=== PATIENT | female | born 1975 | race Two or more races ===

== ENCOUNTER 2019-10-28 20:52 | Emergency (ER) | payer SELFPAY ==
[~2019-10-28] VITALS: Ht 165.1 cm; Wt 70.0 kg
[2019-10-28] MEDS ORDERED: MORPHINE SULFATE 2 MG/ML VIAL. ONE (21:26)
[2019-10-28] MEDS ORDERED: ASPIRIN 325 MG TABLET ONE (21:26)
[2019-10-28] MEDS ORDERED: MORPHINE SULFATE 2 MG/ML VIAL. IV/SQ PRN (21:30)
[2019-10-28 21:32] LABS: BASO # 0.1 x10^3/uL (0.0-0.2); BASO % 1 % (0-3); EOS # 0.1 x10^3/uL (0.0-0.7); EOS % 1 % (0-3); HEMATOCRIT 28.8 % (36.0-47.0); HEMOGLOBIN 9.1 g/dL (12.0-15.5); LYMPH # 1.5 x10^3/uL (1.0-4.8); LYMPH % 12 % (24-48); MEAN CORPUSCULAR HEMOGLOBIN 22 pg (25-35); MEAN CORPUSCULAR HGB CONC 31 g/dL (31-37); MEAN CORPUSCULAR VOLUME 71 fL (79-100); MONO # 0.9 x10^3/uL (0.0-1.1); MONO % 7 % (0-9); NEUT # 10.1 x10^3/uL (1.8-7.7); NEUT % 80 % (31-73); PLATELET COUNT 400 x10^3/uL (140-400); RED BLOOD COUNT 4.08 x10^6/uL (3.50-5.40); RED CELL DISTRIBUTION WIDTH 18.4 % (11.5-14.5); WHITE BLOOD COUNT 12.7 x10^3/uL (4.0-11.0)
--- NOTE | 2019-10-28 21:32 | EKG ---
[facility] [address] [place] [address] Test Date: 2019-10-28 Test Time: 21:00:13 Pat Name: EMMANUELLE SPANGLER Department: Room: Gender: F Screen Vent Binder: : [id number] Requested By: YAEL PORTER Order Number: [id number] Reading MD: Measurements Intervals [place] Rate: 103 P: 42 NE: 112 QRS: 14 QRSD: 74 T: -4 QT: 340 QTc: 447 Interpretive Statements SINUS TACHYCARDIA NO SPECIFIC ECG ABNORMALITIES RI6.01 No previous ECG available for comparison
[2019-10-28 21:37] LABS: PROTHROMBIN TIME PATIENT 13.5 SEC (11.7-14.0)
[2019-10-28 21:39] LABS: CALCIUM 8.9 mg/dL (8.5-10.1); CREATININE 0.8 mg/dL (0.6-1.0); GFR 78.3; POTASSIUM 3.6 mmol/L (3.5-5.1)
[2019-10-28 21:40] LABS: D-DIMER 0.49 ug/mlFEU (0.00-0.50)
[2019-10-28 21:44] LABS: ALBUMIN 3.8 g/dL (3.4-5.0); ALBUMIN/GLOBULIN RATIO 0.9 (1.0-1.7); MAGNESIUM 1.9 mg/dL (1.8-2.4); TOTAL BILIRUBIN 0.3 mg/dL (0.2-1.0); TOTAL PROTEIN 7.9 g/dL (6.4-8.2)
[2019-10-28 21:50] LABS: ANISOCYTOSIS SLIGHT; HYPOCHROMIA MOD; MICROCYTOSIS MARKED; PLT ESTIMATE ADEQUATE (ADEQUATE); POLYCHROMASIA SLIGHT
[2019-10-28 21:56] LABS: CREATINE KINASE 55 U/L (26-192)
[2019-10-28] MEDS ORDERED: IV NORMAL SALINE 1000ML BAG 1,000 ML IV ONE (22:00)
[2019-10-28] MEDS ORDERED: ASPIRIN 325 MG TABLET PO ONE (22:00)
--- NOTE | 2019-10-28 22:04 | RAD ---
Study: CR PORTABLE CHEST 1V Indication: Chest pain. Comparison: None. Findings: Low lung volumes with bronchovascular crowding and accentuation of cardiomediastinal silhouette size. Mild basilar volume loss. No confluent infiltrate, layering effusion or pneumothorax. Impression: Apparent prominence of the cardiomediastinal silhouette and increased lung markings is likely in part related to low lung volumes and AP technique. Findings at the lung bases typical of volume loss. No acute abnormality is identified. Electronically signed by: DENNIS WAGGONER MD (10/28/2019 10:01 PM) [id number]
--- NOTE | 2019-10-28 22:09 | PHYS DOC ---
Past Medical History Past Medical History: Anemia, Hypothyroid (YAEL PORTER APRN) Past Surgical History: Tubal ligation (YAEL PORTER APRN) Smoking Status: Never Smoker Alcohol Use: None (YAEL PORTER APRN) Attending Signature I have participated in the care of this patient and I have reviewed and agree with all pertinent clinical information above including history, exam, and recommendations. (JOCELIN HINDS MD) Adult General Chief Complaint Chief Complaint: CHEST PAIN HPI HPI Patient is a 44 year old female with history of anemia, hypothyroidism, who presents to the ED today with multiple complaints. Patient reports last night she developed body aches, chills and a subjective fever. She states she is able to take Tylenol and went back to sleep. He states this evening she was running her vacuum when she developed chest pain rated at 4 out of 10 described as sharp and intermittent that radiated to her back, she states she also became short of breath and her fingers went numb. Patient denies any exacerbating or relieving factors though she reports being in the ED has made her feel better. Denies any family history of cardiac events before the age of 50. Denies any cough but reports phlegm/mucus Top Polisher line was used for Bulgarian (YAEL PORTER APRN) Review of Systems Review of Systems Constitutional: Reports subjective fevers, body aches Eyes: Denies change in visual acuity, redness, or eye pain [] HENT: Denies nasal congestion or sore throat [] Respiratory: Denies cough or shortness of breath [] Cardiovascular: Reports chest pain GI: Denies abdominal pain, nausea, vomiting, bloody stools or diarrhea [] : Denies dysuria or hematuria [] Musculoskeletal: Denies back pain or joint pain [] Integument: Denies rash or skin lesions [] Neurologic: Denies headache, focal weakness or sensory changes [] Psych: Reports fingers going numb All other systems were reviewed and found to be within normal limits, except as documented in this note. (YAEL PORTER APRN) Current Medications Current Medications Current Medications Medications (Trade) Dose Ordered Sig/Claudine Start Time Stop Time Status Last Admin Dose Admin Aspirin (Dolores Aspirin) 325 mg 1X ONCE 10/28/19 22:00 10/28/19 22:01 DC 10/28/19 21:29 325 MG Morphine Sulfate (Morphine Sulfate) 2 mg PRN Q15MIN PRN 10/28/19 21:30 10/28/19 23:31 DC 10/28/19 21:30 2 MG Sodium Chloride 1,000 ml @ 1,000 mls/hr 1X ONCE 10/28/19 22:00 10/28/19 22:59 DC 10/28/19 21:30 1,000 MLS/HR (JOCELIN HINDS MD) Allergies Allergies Allergies Coded Allergies Type Severity Reaction Last Updated Verified No Known Drug Allergies 10/28/19 No (JOCELIN HINDS MD) Physical Exam Physical Exam Constitutional: Well developed, well nourished, no acute distress, non-toxic a ppearance. [] HENT: Normocephalic, atraumatic, bilateral external ears normal, oropharynx moist, no oral exudates, nose normal. [] Eyes: PERRLA, EOMI, conjunctiva normal, no discharge. [] Neck: Normal range of motion, no tenderness, supple, no stridor. [] Cardiovascular:Heart rate regular rhythm, no murmur [] Lungs & Thorax: Bilateral breath sounds clear to auscultation [] Abdomen: Bowel sounds normal, soft, no tenderness, no masses, no pulsatile masses. [] Skin: Warm, dry, no erythema, no rash. [] Back: No tenderness, no CVA tenderness. [] Extremities: No tenderness, no cyanosis, no clubbing, ROM intact, no edema. [] Neurologic: Alert and oriented X 3, normal motor function, normal sensory function, no focal deficits noted. Cranial nerves II through XII intact Psychologic: Affect normal, judgement normal, mood normal. [] (YAEL PORTER APRN) Current Patient Data Vital Signs Vital Signs Date Time Temp Pulse Resp B/P (MAP) Pulse Ox O2 Delivery O2 Flow Rate FiO2 10/28/19 23:16 86 17 128/75 (92) 97 Room Air 10/28/19 21:07 97.8 97.8 (JOCELIN HINDS MD) Lab Values Laboratory Tests Test 10/28/19 21:10 10/28/19 22:05 White Blood Count 12.7 x10^3/uL (4.0-11.0) H Red Blood Count 4.08 x10^6/uL (3.50-5.40) Hemoglobin 9.1 g/dL (12.0-15.5) L Hematocrit 28.8 % (36.0-47.0) L Mean Corpuscular Volume 71 fL (79-100) L Mean Corpuscular Hemoglobin 22 pg (25-35) L Mean Corpuscular Hemoglobin Concent 31 g/dL (31-37) Red Cell Distribution Width 18.4 % (11.5-14.5) H Platelet Count 400 x10^3/uL (140-400) Neutrophils (%) (Auto) 80 % (31-73) H Lymphocytes (%) (Auto) 12 % (24-48) L Monocytes (%) (Auto) 7 % (0-9) Eosinophils (%) (Auto) 1 % (0-3) Basophils (%) (Auto) 1 % (0-3) Neutrophils # (Auto) 10.1 x10^3/uL (1.8-7.7) H Lymphocytes # (Auto) 1.5 x10^3/uL (1.0-4.8) Monocytes # (Auto) 0.9 x10^3/uL (0.0-1.1) Eosinophils # (Auto) 0.1 x10^3/uL (0.0-0.7) Basophils # (Auto) 0.1 x10^3/uL (0.0-0.2) Platelet Estimate Adequate (ADEQUATE) Polychromasia Slight Hypochromasia Mod Anisocytosis Slight Microcytosis Marked Prothrombin Time 13.5 SEC (11.7-14.0) Prothrombin Time INR 1.1 (0.8-1.1) D-Dimer (Mylene) 0.49 ug/mlFEU (0.00-0.50) Sodium Level 138 mmol/L (136-145) Potassium Level 3.6 mmol/L (3.5-5.1) Chloride Level 100 mmol/L (98-107) Carbon Dioxide Level 25 mmol/L (21-32) Anion Gap 13 (6-14) Blood Urea Nitrogen 6 mg/dL (7-20) L Creatinine 0.8 mg/dL (0.6-1.0) Estimated GFR (Cockcroft-Gault) 78.3 BUN/Creatinine Ratio 8 (6-20) Glucose Level 130 mg/dL (70-99) H Calcium Level 8.9 mg/dL (8.5-10.1) Magnesium Level 1.9 mg/dL (1.8-2.4) Total Bilirubin 0.3 mg/dL (0.2-1.0) Aspartate Amino Transferase (AST) 55 U/L (15-37) H Alanine Aminotransferase (ALT) 61 U/L (14-59) H Alkaline Phosphatase 87 U/L (46-116) Creatine Kinase 55 U/L (26-192) Creatine Kinase MB (Mass) < 0.5 ng/mL (0.0-3.6) Creatine Kinase MB Relative Index % (0-4) Troponin I Quantitative < 0.017 ng/mL (0.000-0.055) AK-Sdz-I-Type Natriuretic Peptide 22 pg/mL (0-124) Total Protein 7.9 g/dL (6.4-8.2) Albumin 3.8 g/dL (3.4-5.0) Albumin/Globulin Ratio 0.9 (1.0-1.7) L Thyroid Stimulating Hormone (TSH) 5.294 uIU/mL (0.358-3.74) H Urine Collection Type Unknown Urine Color Straw Urine Clarity Cloudy Urine pH 7.5 (<5.0-8.0) Urine Specific [place] <=1.005 (1.000-1.030) Urine Protein Negative mg/dL (NEG-TRACE) Urine Glucose (UA) Negative mg/dL (NEG) Urine Ketones (Stick) Negative mg/dL (NEG) Urine Blood Negative (NEG) Urine Nitrite Negative (NEG) Urine Bilirubin Negative (NEG) Urine Urobilinogen Dipstick 0.2 mg/dL (0.2 mg/dL) Urine Leukocyte Esterase Moderate (NEG) Urine RBC 0 /HPF (0-2) Urine WBC 5-10 /HPF (0-4) Urine Squamous Epithelial Cells Many /LPF Urine Bacteria Many /HPF (0-FEW) Urine Opiates Screen Pos (NEG) Urine Methadone Screen Neg (NEG) Urine Barbiturates Neg (NEG) Urine Phencyclidine Screen Neg (NEG) Urine Amphetamine/Methamphetamine Neg (NEG) Urine Benzodiazepines Screen Neg (NEG) Urine Cocaine Screen Neg (NEG) Urine Cannabinoids Screen Neg (NEG) Urine Ethyl Alcohol Neg (NEG) Laboratory Tests 10/28/19 21:10 Laboratory Tests 10/28/19 21:10 (JOCELIN HINDS MD) EKG EKG [address] Hinds sinus tachycardia HR 103 no STEMI[] (YAEL PORTER APRN) Radiology/Procedures Radiology/Procedures []PROCEDURE: PORTABLE CHEST 1V Study: CR PORTABLE CHEST 1V Indication: Chest pain. Comparison: None. Findings: Low lung volumes with bronchovascular crowding and accentuation of cardiomediastinal silhouette size. Mild basilar volume loss. No confluent infiltrate, layering effusion or pneumothorax. Impression: Apparent prominence of the cardiomediastinal silhouette and increased lung markings is likely in part related to low lung volumes and AP technique. Findings at the lung bases typical of volume loss. No acute abnormality is identified. Electronically signed by: DENNIS WAGGONER MD (10/28/2019 10:01 PM) [id number] DICTATED and SIGNED BY: DENNIS WAGGONER MD DATE: 10/28/192200 (YAEL PORTER APRN) Course & Med Decision Making Course & Med Decision Making Pertinent Labs and Imaging studies reviewed. (See chart for details) This is a 44-year-old female patient presenting to the ED today with multiple complaints including body aches, chills, subjective fever that occurred yesterday, chest pain, shortness of breath that occurred this evening as well as numbness to her fingers. EKGs noted for tachycardia otherwise no STEMI. Chest x-ray interpreted by radiologist as negative for any acute findings, d-dimer is normal. CBC with a WBC of 12.7, hemoglobin is 9.1, hematocrit 28.8 known hx of anemia. CMP with AST of 55 ALT 61- Preliminary RUQ ultrasound negative for any acute findings. UA positive for UTI. D/c on cephalaxin. f/u with PCP in 1 week (YAEL PORTER APRN) Dragon Disclaimer Dragon Disclaimer This electronic medical record was generated, in whole or in part, using a voice recognition dictation system. (YAEL PORTER APRN) Departure Departure Impression: Primary Impression: Chest pain Additional Impressions: Transaminitis UTI (urinary tract infection) Disposition: HOME, SELF-CARE Condition: STABLE Referrals: NO PCP (PCP) Follow-up with your doctor in 1-2 weeks Patient Instructions: Chest Pain Observation, Urinary Tract Infection Additional Instructions: You were evaluated in the emergency room with multiple complaints. You have urinary tract infection, we put you on antibiotics, ensure you complete them. Follow-up with your doctor in 1-2 weeks. Scripts Cephalexin (CEPHALEXIN) 500 Mg Tablet 1 TAB PO BID, #14 TAB Prov: YAEL PORTER APRN 10/28/19 Problem Qualifiers Primary Impression: Chest pain Chest pain type: unspecified Qualified Codes: R07.9 - Chest pain, unspecified Additional Impressions: UTI (urinary tract infection) Urinary tract infection type: site unspecified Hematuria presence: without hematuria Qualified Codes: N39.0 - Urinary tract infection, site not specified YAEL PORTER APRN Oct 28, 2019 22:08 JOCELIN HINDS MD Oct 29, 2019 01:52
[2019-10-28 22:16] LABS: BILIRUBIN,URINE NEGATIVE (NEG); CLARITY,URINE CLOUDY; NITRITE,URINE NEGATIVE (NEG); PH,URINE 7.5 (<5.0-8.0); PROTEIN,URINE NEGATIVE (NEG-TRACE); UROBILINOGEN,URINE 0.2 mg/dL (0.2 mg/dL)
[2019-10-28 22:21] LABS: COLOR,URINE STRAW
[2019-10-28 22:24] LABS: BACTERIA,URINE MANY /HPF (0-FEW); BARBITURATES NEG (NEG); BENZODIAZEPINES NEG (NEG); CANNABINOIDS NEG (NEG); COCAINE NEG (NEG); METHADONE NEG (NEG); OPIATES POS (NEG); PHENCYCLIDINE NEG (NEG); RBC,URINE 0 /HPF (0-2); SQUAMOUS EPITHELIAL CELL,UR MANY /LPF
[2019-10-28 22:25] LABS: AMPHETAMINE/METHAMPHETAMINE NEG (NEG)
[2019-10-28] MEDS ORDERED: CEPH500T PO (23:05)
--- NOTE | 2019-10-28 23:08 | RAD ---
ABDOMEN LTD INDICATION: Chest pain, elevated LFTs COMPARISON: None. TECHNIQUE: Limited transverse and longitudinal grayscale images of the right upper quadrant with color and pulsed doppler utilized as appropriate. FINDINGS: The liver demonstrates normal echogenicity without focal lesions. The liver measures 16.3 cm. The portal vein is patent with normal antegrade flow. The gallbladder is normal in appearance without stones. No wall thickening or pericholecystic fluid. Negative sonographic Bowen's sign. No intrahepatic or extrahepatic biliary dilatation. The common bile duct measures 0.3 cm. The visualized portions of the pancreas demonstrate normal echogenicity without focal lesions. The right kidney has normal echogenicity and measures 11.3 cm. No hydronephrosis, shadowing stones or suspicious masses seen. No ascites or fluid collections. The aorta and IVC are normal diameter where visualized. IMPRESSION: Normal gallbladder. Normal caliber common bile duct. Electronically signed by: Luis Armando Kohler MD (10/28/2019 11:06 PM) [id number]
[2019-10-28 23:16] VITALS: BP 128/75
== END 2019-10-28 23:20 | disposition home or self-care (01) ==
LOC: ER 20:52
DX: N39.0 Urinary tract infection, site not specified (principal); R07.89 Other chest pain; R74.0 Nonspecific elevation of levels of transaminase and lactic acid dehydrogenase [LDH]; R50.9 Fever, unspecified; R06.02 Shortness of breath; E03.9 Hypothyroidism, unspecified; Z98.51 Tubal ligation status; Z79.82 Long term (current) use of aspirin
CPT/HCPCS: 36415; 71045; 76705; 80053; 80307; 81001; 82553; 83735; 83880; 84443; 84484; 85025; 85379; 85610; 93005; 96374; 99285; J2270; J7030